=== PATIENT | male | born 1980 | race Caucasian/White ===

== ENCOUNTER 2019-03-13 10:49 | Emergency (ER) | payer OTHER ==
[2019-03-13 11:34] VITALS: BP 114/70
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
== END 2019-03-13 12:23 | disposition home or self-care (01) ==
LOC: UCCORT 10:49
DX: S39.012A Strain of muscle, fascia and tendon of lower back, initial encounter (principal); V53.5XXA Driver of pick-up truck or van injured in collision with car, pick-up truck or van in traffic accident, initial encounter; Y92.414 Local residential or business street as the place of occurrence of the external cause; Y93.89 Activity, other specified; F17.210 Nicotine dependence, cigarettes, uncomplicated
CPT/HCPCS: 72080; 99202; G0463